=== PATIENT | male | born 1955 | race Caucasian/White ===

== ENCOUNTER 2017-08-28 19:51 | Outpatient (CLI) | payer OTHER ==
--- NOTE | 2017-08-28 22:08 | Ultrasound Report ---
EXAM: LEFT LOWER EXTREMITY VENOUS ULTRASOUND EXAM DATE: 08/28/2017 09:49 PM. CLINICAL HISTORY: L LEG SWELLING PAIN. COMPARISON: None. TECHNIQUE: Real-time sonographic vascular imaging was performed by the senior electronics design engineer through the lower extremity utilizing both color-flow and Doppler spectral analysis. Multiple players club representative static melva ges were saved for review. FINDINGS: Common Femoral Vein (CFV): Normal. CFV-GSV Junction: Normal. Profunda Femoral Vein (PFV): Normal. Femoral Vein (FV) Prox: Normal. Femoral Vein (FV) Mid: Normal. Femoral Vein (FV) Dist: Normal. Popliteal Vein: Normal. Posterior Tibial Veins: Normal. Peroneal Veins: Normal. Contralateral Side CFV: Normal. Other: Heterogeneous 4.2 x 1.7 x 1.3 cm intramuscular fluid collection medial aspect of proximal calf . There is a second intramuscular 3.1 x 0.7 x 5.6 cm inferiorly. IMPRESSION: 1. No left lower extremity deep venous thrombosis. 2. Complex medial calf intramuscular fluid collections most likely representing hematomas secondary t o muscle strain. Correlate clinically. [facility] The call report notification system was initiated by Dr. Jah Manley at 21:59 hrs on 08/28/17. The above findings were discussed with Lemme by Dr. Jah Manley at 22:04 hrs on 08/28/17. Referring Provider Line: [phone] SITE ID: [id number]
== END 2017-08-28 19:52 | disposition home or self-care (01) ==
LOC: DI 19:51
PROVIDERS: ATTEND Physician Assistant
DX: M79.605 Pain in left leg (principal); R22.42 Localized swelling, mass and lump, left lower limb